=== PATIENT | male | born 1940 | race Caucasian/White ===

== ENCOUNTER → 2017-08-25 | Outpatient (CLI) | payer MEDICARE ==
[~2017-08-25] MED LIST: AIRDUO RESPICLICK INH; ASPI81TA23 PO; ATOR80TA45 PO; HYDR25TA5 PO; LISI40TA PO; NABU1TAB37 PO; PANT40TA3 PO; TAMS0.4C4 PO; VENTAER INH
--- NOTE | 2017-08-29 09:06 | RSPPFT ---
DATE OF PROCEDURE: 08/25/17 COMMENTS: Spirometry shows FVC of 2.3 at 61% of predicted, FEV1 of 1.3 at 43%, FEV1/FVC ratio is decreased. Flow is decreased at FEF 25, FEF 50, FEF 75 and FEF 25-75. There is no response after bronchodilator treatment. Lung volumes show residual volume is increased. TLC is normal. Diffusion capacity is decreased. Flow volume loop indicates an obstructive pattern. 6-minute walk test shows no de-saturation. IMPRESSION: 1. Moderately severe obstructive lung disease. 2. No response after bronchodilator treatment. 3. Lung volumes show hyperinflation. 4. Diffusion capacity is decreased. 5. 6-minute walk test shows no de-saturation.
== END ==
LOC: HRSP 08-23 07:33
PROVIDERS: ATTEND Specialist
DX: J44.9 Chronic obstructive pulmonary disease, unspecified (principal)
CPT/HCPCS: 94060; 94620; 94726; 94729